=== PATIENT | male | born 1985 | race Caucasian/White ===

== ENCOUNTER 2018-05-02 18:44 | Emergency (ER) | payer BC, OTHER ==
[~2018-05-02] VITALS: Ht 180.3 cm; Wt 113.4 kg
[2018-05-02 19:00] VITALS: BP_SYST 205
[2018-05-02] MEDS ORDERED: KETOROLAC TROMETHAMINE 30 MG VIAL IM ONE (20:45)
[2018-05-02 21:15] VITALS: BP_SYST 118
== END 2018-05-02 21:15 | disposition home or self-care (01) ==
LOC: SED 18:44
DX: S90.31XA Contusion of right foot, initial encounter (principal); J45.909 Unspecified asthma, uncomplicated; R03.0 Elevated blood-pressure reading, without diagnosis of hypertension; Z88.1 Allergy status to other antibiotic agents; W20.8XXA Other cause of strike by thrown, projected or falling object, initial encounter; Y93.89 Activity, other specified; Y92.89 Other specified places as the place of occurrence of the external cause; Y99.8 Other external cause status
CPT/HCPCS: 73630; 96372; 99284; J1885